=== PATIENT | male | born 1980 | race Caucasian/White ===

== ENCOUNTER 2020-10-06 16:57 | Emergency (ER) | payer BC, SELFPAY ==
[2020-10-06 17:05] VITALS: BP 125/81; PULSE 80; RESP 20; TEMP 36.6; O2SAT 98; BMI 33.0
[2020-10-06 17:27] VITALS: BP 125/81; PULSE 80; RESP 20; TEMP 36.6; O2SAT 98
--- NOTE | 2020-10-06 17:36 | HMH.EDUTC ---
[facility] [place] Impression: Exposure to COVID-19 virus Disposition: Home, Self-Care Condition on Discharge: Good Instructions: Preventing the Spread of Coronavirus Discharge Instructions Additional Instructions: Drink plenty of fluids. Take tylenol for pain or fever. Return if you begin to have difficulty breathing. Follow up with your regular doctor. GO TO THE ER FOR ANY WORSENING SYMPTOMS Referrals: Robbin Ybarra MD [Primary Care Provider] - Time of Disposition: 17:37 Medical Decision Making - Medical Records Medical records reviewed: No: I reviewed the patient's medical records. - Nixon Inquiry Pt receiving controlled substance: No Vital Signs: 10/06/20 17:05 10/06/20 17:27 Temperature 97.8 F 97.8 F Temperature Source Temporal Artery Scan Pulse Rate 80 Pulse Rate [Left Brachial] 80 Respiratory Rate 20 20 Blood Pressure 125/81 Blood Pressure [Left Arm] 125/81 Blood Pressure Mean [Left Arm] 95 Blood Pressure Source [Left Arm] Automatic Cuff Blood Pressure Position [Left Arm] Sitting 02 Sat by Pulse Oximetry 98 Oxygen Delivery Method Room Air Orders (Tests/Meds): ORDERS Category Date Time Status Covid-19 Nasal PCR Sendout P&C Routine Lab 10/06/20 17:10 [place] [facility] [place] - General Stated complaint: covid exposure Time Seen by Provider: 10/06/20 17:36 Mode of Arrival: Ambulatory Source of Information: Patient Limitations: No Limitations Description of Symptoms (Recalled from Triage Doc. by RN): PATIENT REQUESTING COVID TEST D/T EXPOSURE; DENIES SYMPTOMS HEENT Symptoms (Recalled from RN notes): No Resp Symptoms (Recalled from RN notes): No Skin Symptoms (Recalled from RN notes): No MS Symptoms (Recalled from RN notes): No Functional Status (Recalled from RN notes): WNL - History of Present Illness Provider Complaint: He was exposed to covid at his work place. He denies any symptoms so far. - Related Data Home Medications Medication Instructions Recorded Confirmed Montelukast Sodium [Singulair 10mg 10 mg PO PM 04/18/18 04/18/18 tablet] Simvastatin 10 mg * DAILY 04/18/18 04/18/18 lisinopriL [Lisinopril 10mg Tab] 10 mg .ROUTE DAILY 04/18/18 04/18/18 Allergies Allergy/AdvReac Type Severity Reaction Status Date / Time No Known Allergies Allergy Verified 11/24/18 11:24 - Worker's Comp Is this a Worker's Comp case?: No [facility] History - Hepatitis A Screen Drug use history?: No High risk sexual behaviors?: No History of sexually transmitted infection?: No Currently employed?: No Childcare worker?: No Do you have indoor plumbing?: Yes Do you have electricity?: Yes Attestation statement:: This patient has been screened for Hepatitis A risk factors. I have reviewed the patient's past medical history: Yes Medical History: Reports:: Hypertension Denies:: Cancer, Diabetes Mellitus Type 1, Diabetes Mellitus Type 2, Internal Pacemaker, MRSA Other Medical History: Reports: Other (high cholesterol) Laterality Cases: Bilateral: Tonsillectomy Other Surgeries: Yes: Appendectomy, Other (lap leo). No: Pacemaker Amputation: No - Social History Smoking Status: Current every day smoker Tobacco Type: cigarettes Alcohol Intake: never Alcohol Intake Frequency:: a few times a month Substance Use Type: denies use Occupational Status: other Housing: house Household Members: spouse, children Family Hx:: Hypertension ROS Obtained: Yes All systems reviewed & no additional complaints - Constitutional Constitutional: Reports system reviewed and no additional complaints, except as docu - Eyes Eyes: Reports system reviewed and no additional complaints, except as docu - ENT Ears, Nose, Mouth, and Throat: Reports system reviewed and no additional complaints, except as docu - Cardiovascular Cardiovascular: Reports system reviewed and no additional complaints, except as docu - Respiratory Respiratory: Yes system reviewed and no additio
== END 2020-10-06 17:50 | disposition home or self-care (01) ==
PROVIDERS: Emergency Provider Nurse Practitioner Family; PCP Family Medicine
DX: Z20.828 Contact with and (suspected) exposure to other viral communicable diseases (principal); I10 Essential (primary) hypertension; F17.210 Nicotine dependence, cigarettes, uncomplicated
CPT/HCPCS: 99201; U0003; U0004

== ENCOUNTER 2021-08-10 19:10 | Emergency (ER) | payer BC, SELFPAY ==
[2021-08-10 19:12] VITALS: BP 141/87; PULSE 88; RESP 18; TEMP 37.3; O2SAT 96; BMI 32.3
--- NOTE | 2021-08-10 19:26 | HMH.EDGENADL ---
ED Disposition Clinical Impression: Laceration Disposition: Home, Self-Care Condition on Discharge: Good Additional Instructions: Wait 1 to 2 days before getting the area wet. After that gentle washing with soap and water. Pat dry. Do not submerge her head in water for at least 1 week. PCP for suture removal in 5 to 7 days. Return to emergency department for redness, pain, swelling, thick drainage. Referrals: Robbin Ybarra MD [Primary Care Provider] - 3 days Time of Disposition: 19:29 - Critical Care Critical Care Time: No Attestation: On 08/10/21, the high probability of a clinically significant, sudden or life threatening deterioration of the following system(s) required my full and direct attention, intervention and personal management. The time I documented below is in addition to time spent performing reported procedures but includes the following listed in this critical care notation. Medical Decision Making - Medical Records Medical records reviewed: Yes: I reviewed the patient's medical records. - Nixon Inquiry Pt receiving controlled substance: No Medical Decision Narrative: 41yo M evaluated for laceration to scalp. Patient no acute distress on initial evaluation. Wound cleaned with Hibiclens and saline. Offered suturing versus divina. Patient okay with divina. 3 divina placed. PCP follow-up in 5 to 7 days for staple removal. General Adult HPI - General Stated complaint: AO 1027hit head, lac Time Seen by Provider: 08/10/21 19:26 Mode of Arrival: Ambulatory Source of Information: Patient - History of Present Illness HPI narrative: 41yo M reports the emergency department secondary to a laceration to the scalp. Patient was working in his tractor when he struck the top of the ceiling. No LOC. No other injury. Uncertain last tetanus shot. - Related Data Home Medications Medication Instructions Recorded Confirmed Montelukast Sodium [Singulair 10mg 10 mg PO PM 04/18/18 04/18/18 tablet] Simvastatin 10 mg * DAILY 04/18/18 04/18/18 lisinopriL [Lisinopril 10mg Tab] 10 mg .ROUTE DAILY 04/18/18 04/18/18 Allergies Allergy/AdvReac Type Severity Reaction Status Date / Time No Known Allergies Allergy Verified 11/24/18 11:24 [facility] History - Hepatitis A Screen Drug use history?: No Attestation statement:: This patient has been screened for Hepatitis A risk factors. I have reviewed the patient's past medical history: Yes Medical History: Reports:: Hypertension Denies:: Cancer, Diabetes Mellitus Type 1, Diabetes Mellitus Type 2, Internal Pacemaker, MRSA Other Medical History: Reports: Other (high cholesterol) Laterality Cases: Bilateral: Tonsillectomy Other Surgeries: Yes: Appendectomy, Other (lap leo). No: Pacemaker Amputation: No - Social History Smoking Status: Current every day smoker Tobacco Type: cigarettes Alcohol Intake: never Alcohol Intake Frequency:: a few times a month Substance Use Type: denies use Occupational Status: other Housing: house Household Members: spouse, children Family Hx:: Hypertension ROS Obtained: Yes All systems reviewed & no additional complaints - Integumentary/Breasts Skin/Breast: Reports as per HPI Physical Exam - General General appearance: alert, in no apparent distress - Head Head exam: normocephalic, other (2.5 cm laceration to the crown of the scalp) - Eye Eye exam: Present: normal appearance, PERRL, EOMI - ENT ENT exam: Present: normal exam - Neck Neck exam: Present: normal inspection - Respiratory Respiratory exam: Absent: respiratory distress - Cardiovascular Cardiovascular exam: Present: regular rate, normal rhythm - Abdominal Exam Abdominal exam: Present: soft - Neurological Exam Neurological exam: Present: alert, oriented X3 - Psychiatric Psychiatric exam: Present: normal affect, normal mood - Skin Skin exam: Present: other (2.5 cm laceration to the crown without significant bleeding.) P
[2021-08-10 19:33] VITALS: BP 139/91; PULSE 91; RESP 18; TEMP 37.2; O2SAT 94
== END 2021-08-10 19:40 | disposition home or self-care (01) ==
PROVIDERS: Emergency Provider Family Medicine; PCP Family Medicine
DX: S01.01XA Laceration without foreign body of scalp, initial encounter (principal); W22.8XXA Striking against or struck by other objects, initial encounter; Y92.73 Farm field as the place of occurrence of the external cause; I10 Essential (primary) hypertension; Z23 Encounter for immunization
CPT/HCPCS: 12001; 90471; 90714; 99282